=== PATIENT | male | born 1955 | race Caucasian/White ===

== ENCOUNTER 2016-10-28 11:23 | Inpatient (IN) | payer OTHER ==
[~2016-10-28] VITALS: Ht 172.7 cm; Wt 54.5 kg
--- NOTE | ~2016-10-28 | OR ---
ADMIT: 10/28/2016 RM/LOC: 508 [facility] MR#: [id number] [address] [address] JOHNNY OLEG Seth [address] [place] [address] Operative/Delivery Room Report SEX: M AGE: 61 : 1955 SURGERY DATE: 10/29/2016 SURGEON: Alexx Singletary MD PREPROCEDURE DIAGNOSIS: Small bowel obstruction. POSTPROCEDURE DIAGNOSIS: Distal ileal obstruction secondary to intraabdominal carcinomatosis. PROCEDURE: Exploratory laparotomy with ileocolic resection and primary reanastomosis. INDICATIONS: The patient is a 61-year-old with known metastatic esophageal cancer, who presents with signs, symptoms, and radiographic evidence consistent with small bowel obstruction, presents for exploratory laparotomy. FINDINGS: The patient was taken to the operating room. General endotracheal anesthesia was induced. The patient's abdomen was prepped and draped in normal sterile fashion. The case was begun by making a vertical midline skin incision using a #10 blade. Dissection was carried down through the subcutaneous fascia and peritoneum using electrocautery. Immediately, we eviscerated a large amount of small bowel dilated contents. There was obviously noted diffuse carcinomatosis and studding throughout the entirety of the peritoneum and mesentery of the large and small bowel. The obstruction was right at the ileocolic junction secondary to tumor burden. I was able to mobilize the ileocolic portion of the bowel and mobilized the entire right colon and hepatic flexure using electrocautery. I divided the distal ileum 10 cm from the ileocolic junction with the 75 ANDRZEJ stapler and divided the mid right colon with the 75 ANDRZEJ stapler. I took down the mesentery between clamps and 0 Vicryl ties. Prior to dividing the colon, I did milk back a lot of stool from the transverse colon to the right colon as the patient has also been quite constipated, lots of stool within the colon. We then made an enterotomy at the antimesenteric border of our small bowel staple line, and using a sump sucker, we milked a lot of the succus entericus to this enterotomy to decompress our small bowel loops. I did take also down adhesions to the undersurface of the anterior abdominal wall, which was our previous J-tube site. I over sewed that with interrupted 3-0 silk seromuscular sutures. I then ran all the small bowel from the ligament of Treitz to the distal ileum showing no further area of obstruction, but certainly diffuse cancer studding throughout the small bowel and small bowel mesentery. I made another enterotomy at the antimesenteric ADMIT: 10/28/2016 RM/LOC: 508 [facility] MR#: [id number] [address] [place] [id number] OLEG TURNER [address] [place] [address] Operative/Delivery Room Report SEX: M AGE: 61 : 1955 border of our colon staple line. I then created a [id number]-hr-ayad stapled anastomosis with a 75 ANDRZEJ stapler, closed the common enterotomy with 2 firings of the 75 ANDRZEJ stapler. I reinforced the apex of the staple line with interrupted 3-0 silk seromuscular sutures and oversewed the common enterotomy staple line with a running 3-0 silk seromuscular suture. I then used some of the surrounding omental fat to patch over the top of this common enterotomy with interrupted 3-0 silk suture as well. There was noted to be no bleeding. The area was irrigated and suctioned out. Bowel loops returned back to normal anatomic position. I closed the fascia with running 0 looped #1 PDS suture. Closed the skin with interrupted skin maame. The wound was cleaned and dried and dressed. The patient tolerated the procedure without difficulty, transferred to the recovery room in good condition. Alexx Singletary MD/ kylah JOB #: [id number] CC: Kyrie Pitt, Attending Physician Kyrie Pitt, Family Physician
--- NOTE | ~2016-10-28 | CO ---
ADMIT: 10/28/2016 RM/LOC: 8 [facility] MR#: [id number] [address] [place] [id number] JOHNNY OLEG Seth [address] [place] [address] Consultation SEX: M AGE: 61 : 1955 DATE OF CONSULTATION: 10/29/2016 ATTENDING PHYSICIAN: Kyrie Pitt CONSULTING PHYSICIAN: Alexx Singletary MD HISTORY OF PRESENT ILLNESS: The patient is a 61-year-old male well known to me with known large advanced distal esophageal cancer with known metastatic disease, who for the last month has been struggling with nausea, vomiting, constipation, and abdominal pain, it has become much worse, and had a radiograph within the last 24 hours showing a distal small bowel obstruction. I was asked to see for possible surgical correction. The patient has been on TPN and unable to tolerate oral nutrition. PAST MEDICAL HISTORY: Includes metastatic esophageal cancer. He has been very receiving chemotherapy, but he is not neutropenic or thrombocytopenic at this point in time. PAST SURGICAL HISTORY: Includes biopsies of his esophagus, exploratory laparoscopy, and J-tube placement. MEDICATIONS: Include: 1. Prochlorperazine. 2. Zopiclone. 3. Zofran. 4. Oxycodone. 5. Fentanyl. 6. Lorazepam. 7. Reglan. 8. Senna. 9. Multivitamin. 10.MiraLax. 11.Dexamethasone associated with his chemo. ALLERGIES: HE HAS NO ALLERGIES. SOCIAL HISTORY: Smoke cigarettes. He is a non-alcohol user. FAMILY HISTORY: Cancer in his grandfather. REVIEW OF SYSTEMS: Denies headaches. He describes weakness, abdominal discomfort, constipation, and pain. ADMIT: 10/28/2016 RM/LOC: 8 [facility] MR#: [id number] 2620 [facility] [address] [place] [phone] OLEG TURNER [address] [place] [address] Consultation SEX: M AGE: 61 : 1955 PHYSICAL EXAMINATION: VITAL SIGNS: He is afebrile. Vitals stable. HEART: Regular. LUNGS: Clear. ABDOMEN: Soft and distended. Mildly tender to deep palpation. EXTREMITIES: No peripheral edema. NEURO: No focal neurologic deficits. ASSESSMENT AND PLAN: The patient is a 61-year-old with signs, symptoms, and radiographic evidence consistent with small bowel obstruction with known metastatic esophageal cancer. After discussion with the patient and the , we have elected for exploratory laparotomy with possible ostomy, possible bowel resection. Alexx Singletary MD/ kylah JOB #: [id number] CC: Kyrie Pitt, Attending Physician Kyrie Pitt, Family Physician
--- NOTE | 2016-11-01 16:40 | ER ---
ADMIT: 10/28/2016 RM/LOC: 508 [facility] MR#: [id number] [address] [address] OLEG TURNER [address] [place] [address] Emergency Room Report SEX: M AGE: 61 : 1955 DATE: 10/28/2016 ADDENDUM: This patient comes to the ER because he is having abdominal pain and severe nausea. He has been having a lot of problems with constipation. Currently, he has esophageal cancer that he is taking chemo for. He also has TPN. He is on opioids both fentanyl and oxycodone and is making him difficult to have bowel movements. He recently started taking Dulcolax, doing enemas, and mag citrate, and last night had severe cramping with no results. While in the ER, he vomited 2 times and it smelled like fecal matter. He has diffuse tenderness and feels like his abdomen is distended. His white count was 11.6. Abdomen did have hypoactive bowel sounds. CT scan showed a small bowel obstruction and did show a lot of stool. I did consult with Dr. Tolentino concerning treatment of this patient. I then spoke with Dr. Pitt and then Dr. Singletary and this patient will be admitted. DIAGNOSES: 1. Small bowel obstruction. 2. Constipation. 3. Esophageal cancer. SANDEE Cohen / Wyatt Tolentino MD / kylah JOB #: [id number] CC: Kyrie Pitt MD, Attending Physician Kyrie Ptit MD, Family Physician
--- NOTE | 2016-11-03 07:21 | HP ---
ADMIT: 10/28/2016 RM/LOC: 508 [facility] MR#: [id number] 2620 [facility] [address] [place] [phone] JOHNNY OLEG Rolo [address] [place] [address] History and Physical SEX: M AGE: 61 : 1955 DATE OF SERVICE: CHIEF COMPLAINT: Constipation and abdominal pain. HISTORY OF PRESENT ILLNESS: This is a 61-year-old male, patient of Dr. Pires in [place] with a past medical history significant for esophageal cancer, diagnosed in 2015. The patient is currently undergoing chemotherapy and follows with Dr. Amaya. He recently found out that he had metastasis to his stomach after a biopsy was done in [place] last month. The patient states he has been unable to the eat for the past few months, so he has been receiving TPN nutrition. He states that he has not had a bowel movement for the last month despite taking Colace, MiraLAX, and mag citrate daily. He occasionally passes a small amount of mucus if he gives himself an enema. He was passing gas up until today. He had such severe abdominal pain for the last few days after receiving his TPN, so he stopped giving himself nutrition. Today, his abdominal pain was so severe that he came to the emergency department. Upon arriving, his vital signs were stable. He was given 1 L of normal saline bolus and Zofran for nausea. He was also given 12 mg of subcu Relistor and then had 2 episodes of emesis that contained fecal material. A CT of his abdomen and pelvis were significant for developing small bowel obstruction. The patient currently states that abdominal pain is much improved and he is no longer feeling nauseous. He has not passed any gas since being at the hospital. PAST MEDICAL HISTORY: Esophageal cancer with metastasis to his stomach, currently on chemotherapy. Last chemotherapy treatment was last week. PAST SURGICAL HISTORY: Biopsies of his esophagus and stomach. MEDICATIONS: 1. Prochlorperazine 10 mg every 4-6 hours as needed. 2. Eszopiclone 3 mg at bedtime as needed. 3. Zofran ODT 8 mg every 8 hours as needed. 4. Oxycodone 10 mg one to two tabs every 4 hours as needed. 5. Fentanyl 50 mcg/hour patch every 72 hours. 6. Lorazepam 0.5 mg twice daily as needed. 7. Reglan 10 mg every 6 hours as needed. 8. Senna Lax 8.6/50 mg one to two tabs twice daily as needed. 9. Multivitamin daily. 10.MiraLAX 17 g daily as needed. 11.Dexamethasone 20 mg 12 in 6 hours before chemo. 12.Dexamethasone 8 mg on day #2 on chemo cycle. 13.Dexamethasone 8 mg twice daily on days 3 and 4 of chemo cycle. ALLERGIES: NONE. SOCIAL HISTORY: Patient states that he smokes about one cigarette a week. He does have a history of smoking half a pack a day for most of his life. He denies any alcohol or illegal drug use. ADMIT: 10/28/2016 RM/LOC: 508 [facility] MR#: [id number] [address] [place] [id number] OLEG TURNER [address] [place] [address] History and Physical SEX: M AGE: 61 : 1955 FAMILY HISTORY: Significant for cancer in his grandfather. REVIEW OF SYSTEMS: A 10-point review of systems was reviewed and negative other than that stated above in the HPI. PHYSICAL EXAMINATION: VITAL SIGNS: Blood pressure 131/77, pulse 92, respirations 16, temp 96.8, saturating 96% on room air. GENERAL: He is alert and oriented x3. No acute distress. HEART: Regular rate and rhythm. LUNGS: Distant. ABDOMEN: Soft, nontender, nondistended. Hypoactive bowel sounds. EXTREMITIES: No lower extremity edema. LABORATORY DATA: Sodium 135, potassium 3.8, creatinine 0.9. White count 11.6, hemoglobin 12.3, platelets 110. CT of the abdomen and pelvis again showed a developing small bowel obstruction. ASSESSMENT AND PLAN: 1. Small bowel obstruction. We could not place an NG at this time due to the tumor in his esophagus and abdomen. We will just keep him n.p.o. for now other than sips. Plan to repeat the Relistor every 24 hours as needed. We will also try Fleet enemas. I did call Dr. Barrientos this evening to see if there is anything else that we could be doing for his constipation. There does not appear to be anything else possible at this time. General surgery will plan to follow him along during this hospital stay. 2. Esophageal cancer with metastasis to the stomach. He is currently undergoing chemo. We will have Dr. Amaya see him while he is here. 3. Severe constipation. 4. History of tobacco abuse. Teresita Singletary DO Resident / Kyrie Pitt MD / kylah JOB #: [id number] CC: Kyrie Pitt, Attending Physician Kyrie Pitt, Family Physician
[2016-11-07] MEDS ORDERED: ZOFRAN ODT8 MG PO (11:15)
[2016-11-07] MEDS ORDERED: COMPAZINE10 MG PO (11:15)
[2016-11-07] MEDS ORDERED: ATIVAN-DPS0.5 MG PO (11:16)
[2016-11-07] MEDS ORDERED: TPN IV (11:16)
[2016-11-07] MEDS ORDERED: LUNESTA3 MG PO (11:16)
[2016-11-07] MEDS ORDERED: INTRALIPID 20%500 ML IV (11:16)
[2016-11-07] MEDS ORDERED: THERA1 EACH PO (11:17)
[2016-11-07] MEDS ORDERED: NORMAL SALINE F30 ML IV (11:17)
[2016-11-07] MEDS ORDERED: DECADRON-DPS4 MG PO (11:18)
--- NOTE | 2016-11-12 10:18 | CO ---
ADMIT: 10/28/2016 RM/LOC: 508 [facility] MR#: [id number] [address] [address] LUCIE TURNER [address] [place] [address] Consultation SEX: M AGE: 61 : 1955 DATE OF CONSULTATION: 10/29/2016 ATTENDING PHYSICIAN: Kyrie Pitt CONSULTING PHYSICIAN: Alexx Singletary MD REASON FOR CONSULTATION: Constipation, small bowel obstruction. HISTORY OF PRESENT ILLNESS: Lucie is a very pleasant 61-year-old male, who has been diagnosed with metastatic esophageal cancer last year at around March. Because of his diagnosis, he has a lot of chest pain and abdominal pain to which he has been prescribed Lortab which he did not tolerate and has now been on oxycodone since March. As a result, the patient has become constipated. His last bowel movement was about one month ago. He was passing flatus however up until yesterday. As a result, he continued to have worsening abdominal pain to the point where he sought medical attention in our Emergency Department. So far, he has been on a regimen of Dulcolax, MiraLax, Mag citrate, and a warm water enema that only produced some mucus appearing stool. Currently, he is not having any abdominal pain, nausea, or vomiting. He has had some occasional night sweats. PAST MEDICAL HISTORY: Please see HPI. Also, anxiety. PAST SURGICAL HISTORY: Exploratory laparoscopy performed by Dr. Downey at [facility] in March 2016. ALLERGIES: NO KNOWN DRUG ALLERGIES. MEDICATIONS: Well documented in chart. FAMILY HISTORY: Noncontributory. SOCIAL HISTORY: The patient is a tobacco user, he is down to one cigarette per day. He denies any alcohol or illicit drug use. REVIEW OF SYSTEMS: CONSTITUTIONAL: The patient states some on and off night sweats. The rest of comprehensive 10-point review of systems was performed and all other systems are negative. PHYSICAL EXAMINATION: GENERAL: The patient is in no acute distress. He is alert and oriented. HEENT: Head is normocephalic and atraumatic. EOMS are intact. Conjunctivae free of icterus, erythema, or pallor. Pinnae, free of deformities. Nose, midline. No tracheal deviation. NECK: Supple. SKIN: Negative for jaundice, clubbing, edema, pallor, or cyanosis. LUNGS: Normal respiratory effort. ADMIT: 10/28/2016 RM/LOC: 508 [facility] MR#: [id number] [address] [address] LUCIE TURNER [address] [place] [address] Consultation SEX: M AGE: 61 : 1955 HEART: Distal pulses intact. Regular rate and rhythm. ABDOMEN: Soft, nondistended, and nontender. NEURO: Grossly intact. DIAGNOSTIC IMAGING: Revealed, on CT of abdomen and pelvis, dilated loops of small bowel and large stool burden in the colon. ASSESSMENT: Small bowel obstruction. PLAN: Plan right now is to continue conservative measures with the patient. I have ordered a milk and molasses enema, and I am going to consult Dr. Singletary and see if we could try and attempt an NG tube preferably with Interventional Radiology but because of his anatomy, I will discuss this with him. I discussed this plan with the patient and his , who was present during my whole assessment. They are in agreement of this plan, had all their questions answered, and would like to proceed. Thank you for the consultation on this patient. SANDEE Bridges / Alexx Singletary MD / kylah JOB #: [id number] CC: Kyrie Pitt, Attending Physician Kyrie Pitt, Family Physician
--- NOTE | 2016-11-16 06:37 | DS ---
ADMIT: 10/28/2016 RM/LOC: 508 [facility] MR#: [id number] [address] [id number] JOHNNY LUCIE Rolo [address] [place] [address] General Discharge Summary SEX: M AGE: 61 : 1955 ADMISSION DATE: 10/28/2016 DISCHARGE DATE: 11/05/2016 ADMITTING DIAGNOSIS: Metastatic esophageal carcinoma. DISMISSAL DIAGNOSIS: Metastatic esophageal carcinoma. COMPLICATING DIAGNOSES: 1. Protein-calorie severe malnutrition. 2. BMI less than 19. 3. Hypokalemia. PROCEDURES: Resection of bowel. CONSULTANTS: Dr. Singletary and Oncology. CHIEF COMPLAINT AND HISTORY OF PRESENT ILLNESS: A 61-year-old, male patient of Dr. Pires in [place] with a past medical history of esophageal cancer diagnosed in 2016. He is undergoing chemotherapy by Dr. Amaya. He recently found that he had metastatic disease to his stomach after a biopsy was done in [place] last month. The patient states he has unable to eat for the past few days, so he had been receiving total peripheral nutrition. He states that he has not had a bowel movement for the last month despite taking Colace, MiraLax, and mag citrate daily. Occasionally, he passes a small amount of mucus if he gives himself an enema. He was passing flatus up until today. His abdominal pain was severe enough for the last few days after receiving TPN, so he stop giving himself the TPN. Today, his abdominal pain was severe enough, he came to the emergency room. Upon arrival to the emergency room, his vital signs are stable. He was given a liter of normal saline bolus along with Zofran for nausea. He was given 12 mg of subcutaneous Relistor and then had two episodes of emesis that contained fecal-type material. CT scans of the abdomen and pelvis were significant for developing small bowel obstruction. After vomiting, the patient states his abdominal pain has improved and he is not feeling nauseated. LAB REPORTS: Please see lab summary sheets. Prior to dismissal, white count 11.1, hemoglobin 9.3, platelets 303,000. INR prior to dismissal was less than 1. Electrolytes prior to dismissal; sodium 136, potassium 3.8, chloride 105, CO2 of 24, BUN 22, creatinine 0.5, glucose 103. Liver enzymes during the hospital stay were normal. Blood sugars were 100-150 during the hospital stay. RADIOLOGY REPORTS: CT scan of the abdomen and pelvis showed developing small bowel obstruction with multiple abnormally dilated fluid-filled loops of small bowel throughout the abdomen. Appears to be a transition point in the right lower quadrant. There is no free air identified. Distal esophagus appeared to be thickened. Chest x-ray portable was negative. Flat plate abdomen shows significant retained stool. ADMIT: 10/28/2016 RM/LOC: 508 [facility] MR#: [id number] [address] [place] [phone] LUCIE TURNER [address] [place] [address] General Discharge Summary SEX: M AGE: 61 : 1955 COURSE IN THE HOSPITAL: Lucie was admitted, placed n.p.o., started on IV fluids. A Surgery consult was obtained for small bowel obstruction. He had surgery with resection of the obstruction in the small bowel and colon. Oncology saw him in consultation. Postoperatively, he developed ileus requiring TPN, IV fluids, and pain control. He did have an ileocolic resection with primary reanastomosis, had an epidural block in place which did give him relief of the pain. Postoperatively, he did have a fair amount of pain due to the ileus. Eventually, his bowel function returned. He started passing flatus. His pain was improved. The bowel obstruction was secondary to multiple metastatic diseases from the esophageal carcinoma. He is able to tolerate full liquid diet. DISCHARGE MEDICATIONS: Medications at dismissal were: 1. Intralipid solution 20%, Intralipid 500 mL daily plus TPN solution No. 7. 2. P.r.n. Zofran. 3. Lorazepam. 4. Multivitamin. He is to follow up with his primary care physician in 1-2 weeks and with Oncology when they recommend followup. Kyrie Pitt MD/ kylah JOB #: [id number] CC: Kyrie Pitt MD, Attending Physician Kyrie Pitt MD, Family Physician
== END 2016-11-05 16:59 | disposition home or self-care (01) | DRG 329 ==
LOC: ER 11:23 → 5MS 17:28
PROVIDERS: ADMIT Family Medicine
PROC: 3E0436Z Introduction of Nutritional Substance into Central Vein, Percutaneous Approach (ICD-10-PCS; principal; 2016-10-29)
PROC: 0DBK0ZZ Excision of Ascending Colon, Open Approach (ICD-10-PCS; principal; 2016-10-29)
PROC: 0DBB0ZZ Excision of Ileum, Open Approach (ICD-10-PCS; principal; 2016-10-29)
DX: C78.89 Secondary malignant neoplasm of other digestive organs (principal); E43 Unspecified severe protein-calorie malnutrition; C15.9 Malignant neoplasm of esophagus, unspecified; K56.7 Ileus, unspecified; Z68.1 Body mass index [BMI] 19.9 or less, adult; K59.00 Constipation, unspecified; C78.6 Secondary malignant neoplasm of retroperitoneum and peritoneum; E87.6 Hypokalemia; F41.9 Anxiety disorder, unspecified; F17.210 Nicotine dependence, cigarettes, uncomplicated; Z66 Do not resuscitate